=== PATIENT | female | born 1935 | race Caucasian/White ===

== ENCOUNTER → 2016-11-20 | Outpatient (CLI) | payer OTHER ==
[~2016-11-20] MED LIST: ACETAMINOPHEN PO; ALBUTEROL MDI INH; AMITRYPTYLINE PO; ASPIRIN PO; ATENOLOL PO; B COMPLEX/FOLIC1 TAB PO; BAYER ASPIRIN325 M1 PO; CARTIA XT PO; CERTAGEN PO; COLACE PO; CORICIDIN COUGH1 TAB PO; FOSAMAX PO; GLYBURIDE PO; IMDUR PO; KCL PO; LASIX PO; LEVAQUIN PO; LIPITOR PO; LISINOPRIL PO; LOPRESSOR PO; METFORMIN PO; NICOTINE T1 PATCH .2 TOP; NITROGYLCERIN SUBLINGUAL; NORVASC PO; OXYGEN; PLAVIX PO; PREDNISONE PO; PREMARIN PO; PROAIR HFA8.5 GM IH; SPIRIVA18 MCG INH; SYMBICORT INH; SYMBICORT80 INH
== END | disposition home or self-care (01) ==
LOC: CECH 12:44
DX: R06.00 Dyspnea, unspecified (principal); J44.9 Chronic obstructive pulmonary disease, unspecified; Z99.81 Dependence on supplemental oxygen
CPT/HCPCS: 93306